=== PATIENT | female | born 1995 ===

== ENCOUNTER 2019-07-25 11:29 | Outpatient (CLI) | payer OTHER | END 2019-07-25 12:30 | disposition home or self-care (01) | LOC: PRENATAL 11:29 | DX: O98.912 Unspecified maternal infectious and parasitic disease complicating pregnancy, second trimester (principal); O34.42 Maternal care for other abnormalities of cervix, second trimester; O60.02 Preterm labor without delivery, second trimester ==

== ENCOUNTER 2019-10-28 17:00 | Inpatient (IN) | payer OTHER ==
[~2019-10-28] VITALS: Ht 162.6 cm; Wt 60.8 kg
[2019-10-28] MEDS ORDERED: PROAIR HFA8.5 GM IH (17:31)
[2019-10-28] MEDS ORDERED: PRENATAL TABLE1 EAC1 PO (17:32)
[2019-10-28] MEDS ORDERED: PREDNISONE PO (17:32)
[2019-10-30] MEDS ORDERED: PREDNISONE20 M1 PO (09:42)
== END 2019-11-01 18:24 | disposition home or self-care (01) | DRG 833 ==
LOC: OBS/DEL 17:00 → OB/GYN 10-29 09:07 → LDR 10-29 09:07 → OB/GYN 10-29 11:56
PROVIDERS: ADMIT Obstetrics & Gynecology
PROC: 3E0F7GC Introduction of Other Therapeutic Substance into Respiratory Tract, Via Natural or Artificial Opening (ICD-10-PCS; principal; 2019-10-29)
PROC: 4A1HXCZ Monitoring of Products of Conception, Cardiac Rate, External Approach (ICD-10-PCS; 2019-10-29)
DX: O26.893 Other specified pregnancy related conditions, third trimester (principal); A49.3 Mycoplasma infection, unspecified site

== ENCOUNTER 2019-12-10 07:49 | Inpatient (IN) | payer OTHER ==
[~2019-12-10] VITALS: Ht 162.6 cm; Wt 64.9 kg
[~2019-12-10 07:49] MED LIST: PREDNISONE PO; PREDNISONE20 M1 PO; PRENATAL TABLE1 EAC1 PO; PROAIR HFA8.5 GM IH
== END 2019-12-12 11:44 | disposition home or self-care (01) | DRG 807 ==
LOC: LDR 07:49 → OB/GYN 07:49 → LDR 13:08 → OB/GYN 16:12
PROVIDERS: ADMIT Obstetrics & Gynecology
PROC: 10E0XZZ Delivery of Products of Conception, External Approach (ICD-10-PCS; principal; 2019-12-10)
PROC: 10907ZC Drainage of Amniotic Fluid, Therapeutic from Products of Conception, Via Natural or Artificial Opening (ICD-10-PCS; 2019-12-10)
PROC: 3E033VJ Introduction of Other Hormone into Peripheral Vein, Percutaneous Approach (ICD-10-PCS; 2019-12-10)
PROC: 4A1HXCZ Monitoring of Products of Conception, Cardiac Rate, External Approach (ICD-10-PCS; 2019-12-10)
DX: O80 Encounter for full-term uncomplicated delivery (principal); Z37.0 Single live birth; Z3A.38 38 weeks gestation of pregnancy